=== PATIENT | female | born 1950 | race Caucasian/White ===

== ENCOUNTER → 2019-07-04 | Outpatient (CLI) | payer MEDICARE ==
[2019-07-04 12:37] LABS: BUN 19 mg/dl (7-24); CHLORIDE 104 mmol/L (98-107); CHOLESTEROL 192 mg/dL (<200); CREATININE 0.88 mg/dL (0.55-1.02); HDL CHOLESTEROL 84 mg/dl (40-60); LDL CHOLESTEROL 96 mg/dL (9-159); POTASSIUM 3.8 mmol/L (3.5-5.1); SODIUM 139 mmol/L (136-145); TRIGLYCERIDES 58 mg/dl (<150); VLDL CHOLESTEROL 12 mg/dL (6-40)
== END | disposition home or self-care (01) ==
LOC: LAB 11:47
PROVIDERS: Family Medicine
DX: I10 Essential (primary) hypertension (principal)

== ENCOUNTER → 2022-03-12 | Outpatient (CLI) | payer MEDICARE ==
[2022-03-12 09:44] LABS: BUN 19 mg/dl (7-24); CHLORIDE 105 mmol/L (98-107); CHOLESTEROL 189 mg/dL (<200); CREATININE 0.86 mg/dL (0.55-1.02); POTASSIUM 3.8 mmol/L (3.5-5.1); SODIUM 137 mmol/L (136-145); TRIGLYCERIDES 56 mg/dl (<150)
[2022-03-12 09:45] LABS: LDL CHOLESTEROL 92 mg/dL (9-159)
== END | disposition home or self-care (01) ==
LOC: LAB 08:56
PROVIDERS: ATTEND Family Medicine
DX: I10 Essential (primary) hypertension (principal)

== ENCOUNTER → 2023-08-11 | Outpatient (CLI) | payer MEDICARE ==
[2023-08-11 13:41] LABS: BUN 17 mg/dl (9-23); CHLORIDE 103 mmol/L (98-107); CHOLESTEROL 196 mg/dL (<200); LDL CHOLESTEROL 108 mg/dL (9-159); POTASSIUM 4.2 mmol/L (3.4-5.1); TRIGLYCERIDES 86 mg/dl (<150)
== END | disposition home or self-care (01) ==
LOC: LAB 12:04
PROVIDERS: ATTEND Family Medicine
DX: I10 Essential (primary) hypertension (principal)

== ENCOUNTER 2025-06-21 14:29 | Emergency (ER) | payer MEDICARE ==
[2025-06-21 15:05] LABS: BASO # 0.0 10*3/uL (0.0-0.1); BASO % 0.6 % (0.0-1.0); EOS # 0.0 10*3/uL (0.0-0.4); EOS % 0.0 % (1.0-4.0); MEAN CELL VOLUME 93.6 fl (81.0-99.0); MEAN CORPUSCULAR HGB 31.4 pg (27.0-31.0); MEAN PLATELET VOLUME 10.3 fl (9.6-12.3); MONO # 0.2 10*3/uL (0.1-1.0); MONO % 4.7 % (3.0-9.0); NEUT # 4.1 10*3/uL (2.3-7.9); NEUT % 84.0 % (47.0-73.0); NUCLEATED RED BLOOD CELL 0.0 % (0.0-0.0); NUCLEATED RED BLOOD CELL 0.0 10*3/uL (0.0-0.0); PLATELET COUNT AUTOMATED 169 10*3/uL (130-400); RED CELL DISTRI WIDTH 11.9 % (0-14.5)
[2025-06-21 15:20] LABS: ACT PARTIAL THROMBO TIME 26.5 SECONDS (20.0-32.1)
[2025-06-21 15:27] LABS: BUN 27.0 mg/dl (9-23); SGPT/ALT 10.0 U/L (5-49)
[2025-06-21 16:27] LABS: BILIRUBIN Negative (Negative); BLOOD Negative (Negative); CLARITY Clear (Clear); COLOR Yellow (Yellow); KETONE 1+ (Negative); LEUKO ESTERASE Trace (Negative); NITRITE Negative (Negative); PH 5.0 (4.5-8.0); SPECIFIC GRAVITY 1.020 (1.001-1.030); UROBILINOGEN 1.0 E.U./dl (0.0-1.0)
[2025-06-21 16:41] LABS: BACTERIA 3+; COARSE GRANULAR CAST 0-2; HYALINE CAST 31-40; RBC 0-2 rbc/hpf (0-2)
[2025-06-21] MEDS ORDERED: CIPRO500 MG PO ×2 (16:52→16:53)
[2025-06-21] MEDS ORDERED: OXAZEPAM15 MG PO (23:47)
[2025-06-21] MEDS ORDERED: AMLODIPINE BES2.5 MG PO (23:47)
[2025-06-21] MEDS ORDERED: TRIAMTERENE-HC1 EACH PO (23:48)
[2025-06-21] MEDS ORDERED: ALPRAZOLAM0.5 M3 PO (23:48)
== END 2025-06-21 17:19 | disposition home or self-care (01) ==
LOC: ED 14:29
PROVIDERS: Internal Medicine
DX: N39.0 Urinary tract infection, site not specified (principal); R41.82 Altered mental status, unspecified; Z53.29 Procedure and treatment not carried out because of patient's decision for other reasons

== ENCOUNTER 2025-06-21 20:51 | Inpatient (IN) | payer MEDICARE ==
[~2025-06-21] VITALS: Ht 162.6 cm; Wt 38.3 kg
[~2025-06-21 20:51] MED LIST: CIPRO500 MG PO
[2025-06-21 20:58] VITALS: BP 134/58
[2025-06-21] MEDS ORDERED: SODIUM CHLORIDE 0.9% 1,000 ML IV ONE ×2 (21:15→22:45)
[2025-06-21] MEDS ORDERED: Ondansetron Hydrochloride 4 MG/2 ML VIAL IV PRN (22:25)
[2025-06-21] MEDS ORDERED: ACETAMINOPHEN 325 MG TAB PO PRN (22:25)
[2025-06-21] MEDS ORDERED: Acetaminophen/Hydrocodone 5 MG/325 MG TABLET PO PRN (22:25)
[2025-06-21] MEDS ORDERED: BISACODYL 10 MG SUPP R PRN (22:25)
[2025-06-21] MEDS ORDERED: ACETAMINOPHEN 650 MG SUPP R PRN (22:25)
[2025-06-21] MEDS ORDERED: BISACODYL 5 MG TAB PO PRN (22:25)
[2025-06-21] MEDS ORDERED: AMLODIPINE BES2.5 MG PO (23:47)
[2025-06-21] MEDS ORDERED: OXAZEPAM15 MG PO (23:47)
[2025-06-21] MEDS ORDERED: TRIAMTERENE-HC1 EACH PO (23:48)
[2025-06-21] MEDS ORDERED: ALPRAZOLAM0.5 M3 PO (23:48)
[2025-06-22 01:10] VITALS: BP 130/60
[2025-06-22 05:00] VITALS: BP 132/57
[2025-06-22 06:52] LABS: BASO # 0.0 10*3/uL (0.0-0.1); BASO % 0.8 % (0.0-1.0); EOS # 0.1 10*3/uL (0.0-0.4); EOS % 1.0 % (1.0-4.0); MEAN CELL VOLUME 95.3 fl (81.0-99.0); MEAN CORPUSCULAR HGB 31.1 pg (27.0-31.0); MEAN PLATELET VOLUME 10.5 fl (9.6-12.3); MONO # 0.5 10*3/uL (0.1-1.0); MONO % 9.7 % (3.0-9.0); NEUT # 3.7 10*3/uL (2.3-7.9); NEUT % 72.5 % (47.0-73.0); NUCLEATED RED BLOOD CELL 0.0 % (0.0-0.0); NUCLEATED RED BLOOD CELL 0.0 10*3/uL (0.0-0.0); PLATELET COUNT AUTOMATED 162 10*3/uL (130-400); RED CELL DISTRI WIDTH 11.9 % (0-14.5)
[2025-06-22 07:06] LABS: ACT PARTIAL THROMBO TIME 26.5 SECONDS (20.0-32.1)
[2025-06-22 07:26] LABS: BUN 22 mg/dl (9-23); FREE T4 1.47 ng/dl (0.89-1.76); LDL CHOLESTEROL 106 mg/dL (9-159)
[2025-06-22 07:33] LABS: SGPT/ALT < 7 U/L (5-49)
[2025-06-22 08:00] VITALS: BP 133/54
[2025-06-22 08:07] LABS: VITAMIN D, 25-HYDROXY 49.1 ng/mL (30-100)
[2025-06-22] MEDS ORDERED: POTASSIUM CHLORIDE 20 MEQ TAB PO ONE (08:15)
[2025-06-22 12:00] VITALS: BP 107/53
[2025-06-22 16:00] VITALS: BP 134/58
[2025-06-22 20:00] VITALS: BP 131/55
[2025-06-23] VITALS: BP 116/54
[2025-06-23 07:49] LABS: BASO # 0.0 10*3/uL (0.0-0.1); BASO % 0.7 % (0.0-1.0); EOS # 0.0 10*3/uL (0.0-0.4); EOS % 0.7 % (1.0-4.0); MEAN CELL VOLUME 93.7 fl (81.0-99.0); MEAN CORPUSCULAR HGB 31.1 pg (27.0-31.0); MEAN PLATELET VOLUME 10.8 fl (9.6-12.3); MONO # 0.5 10*3/uL (0.1-1.0); MONO % 8.3 % (3.0-9.0); NEUT # 4.1 10*3/uL (2.3-7.9); NEUT % 75.3 % (47.0-73.0); NUCLEATED RED BLOOD CELL 0.0 % (0.0-0.0); NUCLEATED RED BLOOD CELL 0.0 10*3/uL (0.0-0.0); PLATELET COUNT AUTOMATED 144 10*3/uL (130-400); RED CELL DISTRI WIDTH 11.9 % (0-14.5)
[2025-06-23 08:00] VITALS: BP 131/60
[2025-06-23 08:18] LABS: BUN 17 mg/dl (9-23)
[2025-06-23 11:59] VITALS: BP 136/52
[2025-06-23] MEDS ORDERED: FOAM BANDAGE 1 EACH BANDAGE T ONE (15:10)
[2025-06-23] MEDS ORDERED: FOAM BANDAGE HEEL T ONE (15:10)
[2025-06-23 16:00] VITALS: BP 143/58
[2025-06-23 20:00] VITALS: BP 160/70
[2025-06-23] MEDS ORDERED: ALPRAZolam 0.5 MG TAB PO SCH (22:00)
[2025-06-24] VITALS: BP 150/59
[2025-06-24 06:27] LABS: BASO # 0.0 10*3/uL (0.0-0.1); BASO % 0.7 % (0.0-1.0); EOS # 0.1 10*3/uL (0.0-0.4); EOS % 1.1 % (1.0-4.0); MEAN CELL VOLUME 94.2 fl (81.0-99.0); MEAN CORPUSCULAR HGB 31.2 pg (27.0-31.0); MEAN PLATELET VOLUME 10.6 fl (9.6-12.3); MONO # 0.4 10*3/uL (0.1-1.0); MONO % 9.1 % (3.0-9.0); NEUT # 3.3 10*3/uL (2.3-7.9); NEUT % 74.2 % (47.0-73.0); NUCLEATED RED BLOOD CELL 0.0 % (0.0-0.0); NUCLEATED RED BLOOD CELL 0.0 10*3/uL (0.0-0.0); PLATELET COUNT AUTOMATED 143 10*3/uL (130-400); RED CELL DISTRI WIDTH 12.0 % (0-14.5)
[2025-06-24 07:28] LABS: BUN 12 mg/dl (9-23)
[2025-06-24 08:00] VITALS: BP 146/60
[2025-06-24] MEDS ORDERED: HCTZ/Triamter 37.5/25 MG TAB PO SCH (10:00)
[2025-06-24] MEDS ORDERED: OXAZEPAM15 MG PO (10:26)
[2025-06-24] MEDS ORDERED: ALPRAZOLAM0.5 M3 PO (10:26)
[2025-06-24 12:00] VITALS: BP 144/68
== END 2025-06-24 13:45 | DRG 71 ==
LOC: ED 20:51 → 5E 21:13 → EDHOLD 21:13 → 5E 06-22 03:53
PROVIDERS: Student in an Organized Health Care Education/Training Program; ADMIT Internal Medicine; ATTEND Internal Medicine
DX: G93.41 Metabolic encephalopathy (principal); N39.0 Urinary tract infection, site not specified; N18.32 Chronic kidney disease, stage 3b; E87.6 Hypokalemia; I12.9 Hypertensive chronic kidney disease with stage 1 through stage 4 chronic kidney disease, or unspecified chronic kidney disease; E87.8 Other disorders of electrolyte and fluid balance, not elsewhere classified; R73.9 Hyperglycemia, unspecified; E83.52 Hypercalcemia; L89.151 Pressure ulcer of sacral region, stage 1; Z79.899 Other long term (current) drug therapy; Z79.01 Long term (current) use of anticoagulants